=== PATIENT | male | born 1965 | race American Indian/Alaskan Native ===

== ENCOUNTER 2017-04-24 18:02 | Emergency (ER) | payer MEDICARE ==
--- NOTE | 2017-04-24 23:12 | Emergency Department Report ---
HPI - General Chief Complaint: Pain General Time Seen by Provider: 04/24/17 22:48 - HPI HPI: Room 24 The patient is a 52-year-old male presenting with a chief complaint of left testicle/groin pain. The patient is deaf so history is obtained through written messages. The patient states for 3 weeks he's had intermittent pain in the left testicle and left groin. The patient denies dysuria or penile discharge. Patient denies fever. Location: Left testicle, left groin Duration: Intermittent 3 weeks Quality: Pain Severity: Moderate Modifying factors: [see above] Context: [see above] Mode of transportation: [not driving] ED Past Medical Hx - Past Medical History Additional medical history: Hearing impairment - Surgical History Additional Surgical History: right Knee Surgery 2010 - Family History Family history: no significant - Social History Smoking Status: Current Every Day Smoker Substance Use Type: None - Medications Home Medications: Home Medications Medication Instructions Recorded Confirmed Last Taken Type Ibuprofen [Motrin] 800 mg PO TID PRN #21 tablet 07/19/13 Unknown Rx Neomy/Polymyx B/Hc (Otic) Soln 5 drops OT QID #1 bottle 07/19/13 Unknown Rx [Cortisporin (Otic) Soln] Sulfamethoxazole/Trimethoprim 1 each PO BID #20 tablet 07/19/13 Unknown Rx [Bactrim Ds] Ibuprofen [Motrin 800 MG tab] 800 mg PO Q8HR PRN #20 tablet 04/25/17 Unknown Rx traMADol [Ultram] 50 mg PO Q6HR PRN #14 tablet 04/25/17 Unknown Rx ED Review of Systems ROS: Stated complaint: TESTICLE PAIN Other details as noted in HPI Constitutional: denies: fever Genitourinary: testicular pain. denies: dysuria, discharge Musculoskeletal: myalgia Physical Exam - Physical Exam Vital Signs: Vital Signs 04/24/17 18:18 Temperature 98.2 F Pulse Rate 75 Respiratory 16 Rate Blood Pressure 124/84 O2 Sat by Pulse 97 Oximetry Physical Exam: GENERAL: The patient is well-developed well-nourished male lying on stretcher not appearing to be in acute distress. [] HEENT: Normocephalic. Atraumatic. Extraocular motions are intact. Patient has moist mucous membranes. NECK: Supple. Trachea midline CHEST/LUNGS: There is no respiratory distress noted. HEART/CARDIOVASCULAR: Regular. There is no tachycardia. There is no gallop rub or murmur. ABDOMEN: There is no abdominal distention. SKIN: There is no rash. There is no edema. There is no diaphoresis. NEURO: The patient is awake, alert, and oriented. The patient is cooperative. MUSCULOSKELETAL:There is no evidence of acute injury. GENITOURINARY: No evidence of scrotal edema or inguinal hernia palpated. Testicles have normal appearance ED Course Vital Signs 04/24/17 18:18 Temperature 98.2 F Pulse Rate 75 Respiratory 16 Rate Blood Pressure 124/84 O2 Sat by Pulse 97 Oximetry ED Medical Decision Making - Lab Data Result diagrams: 04/24/17 23:41 04/24/17 23:41 Laboratory Tests 04/24/17 04/24/17 04/24/17 23:41 23:41 Unknown WBC 5.7 RBC 4.70 Hgb 14.2 Hct 42.8 MCV 91 MCH 30 MCHC 33 RDW 13.7 Plt Count 290 Sodium 141 Potassium 4.0 Chloride 101.5 Carbon Dioxide 28 Anion Gap 16 BUN 13 Creatinine 0.8 Estimated GFR > 60 BUN/Creatinine Ratio 16 Glucose 94 Calcium 9.3 Urine Color Yellow Urine Turbidity Clear Urine pH 5.0 Ur Specific [place] 1.024 Urine Protein <15 mg/dl Urine Glucose (UA) Neg Urine Ketones Neg Urine Blood Neg Urine Nitrite Neg Urine Bilirubin Neg Urine Urobilinogen 2.0 Ur Leukocyte Esterase Neg Urine WBC (Auto) < 1.0 Urine RBC (Auto) 1.0 - Radiology Data Radiology results: report reviewed (CT abdomen and pelvis, testicular ultrasound ), image reviewed (CT abdomen and pelvis, testicular ultrasound) FINAL REPORT PROCEDURE: CT ABDOMEN PELVIS WO CON TECHNIQUE: Computerized axial tomography of the abdomen and pelvis was performed without intravenous contrast. This study is performed without intravascular contrast material and its sensitivity for abdominal and pelvic pathology, including neoplasms, inflammation, abscess, free fluid, thrombosis, arterial dissection and infarction, is reduced compared with a contrast enhanced study. HISTORY: left groin pain, left flank pain COMPARISON: No prior studies are available for comparison. FINDINGS: Cardiomegaly is seen without suggestion of CHF. Liver is top normal limits in size. No splenic abnormality is seen. Gallbladder is contracted and not well evaluated. Appears normal. Adrenal glands and abdominal aorta are normal in size. No renal abnormality is seen. Patient has a very long appendix, which extends cephalad terminating between the duodenum and the gallbladder fossa. This is a normal variant appearance and no evidence of appendicitis is seen. Urinary bladder is decompressed but there is suggestion of possible diffuse wall thickening. Cystitis cannot be excluded. Prostate gland appears normal in size. There is a low-density cystic-appearing structure in the left side of the pelvis measuring 2.2 x 1.9 cm. It could be a GI duplication cyst or possibly a Hutch diverticulum. Undescended testis would be another possible etiology. Mild right-sided constipation is seen. No evidence of bowel obstruction is seen. Diffuse central disc bulge is seen at L4-5 causing thecal sac effacement. IMPRESSION: Possible changes of cystitis are seen. Correlation with urinalysis is recommended. 2.2 cm thin-walled simple appearing cyst is seen in the left side of the pelvis. This could be a serous cyst or duplication cyst. A Hutch diverticulum or undescended testis could possibly cause the appearance. Mild right-sided constipation is seen. Cardiomegaly is seen without evidence of CHF. Transcribed By: ANTONY Dictated By: ROBSON OLIVEIRA JR, MD Electronically Authenticated By: ROBSON OLIVEIRA JR, MD Signed Date/Time: 04/24/171946 DD/ 46 TD/TT: 04/24/171946 FINAL REPORT EXAM: US TESTICULAR DOPPLER COMP HISTORY: left testicular pain TECHNIQUE: Routine sonographic evaluation was obtained of the scrotum along with Doppler interrogation of the testicles. FINDINGS: The right testicle is normal in size contour blood flow and echotexture measuring 5.1 cm x 2.0 cm x 2.9 cm. The right epididymis appears normal. The left testicle measures 4.5 cm x 1.8 cm x 2.9 cm. Within the left testicle is a benign cyst measuring 6 millimeters in diameter. The blood flow is normal to the left testicle. The left epididymis appears normal. There is a small left-sided hydrocele. IMPRESSION: Small left hydrocele. 6 millimeter benign cyst within the left testicle. No evidence of an undescended testicle. No evidence of testicular torsion. Transcribed By: AARON Dictated By: CHLOE BLAIR MD Electronically Authenticated By: CHLOE BLAIR MD Signed Date/Time: 04/24/172003 DD/ 03 TD/TT: 04/24/172003 - Differential Diagnosis renal colic, hernia, testicular torsion, epididymitis Critical care attestation.: If time is entered above; I have spent that time in minutes in the direct care of this critically ill patient, excluding procedure time. ED Disposition Clinical Impression: Hydrocele in adult, Testicular cyst, Testicle pain Disposition: TO HOME OR SELFCARE Is pt being admited?: No Does the pt Need Aspirin: No Condition: Stable Instructions: Testicle Pain (ED), Hydrocele (ED) Additional Instructions: Return to the emergency department immediately should you develop worsening symptoms, fever, inability to tolerate food or liquid or any other concerns. Prescriptions: Ibuprofen [Motrin 800 MG tab] 800 mg PO Q8HR PRN #20 tablet PRN Reason: Pain traMADol [Ultram] 50 mg PO Q6HR PRN #14 tablet PRN Reason: Pain Referrals: TANYA SOLOMON MD [Staff Physician] - 2-3 Days (Dr. Solomon is a urologist. Please follow-up with him for further evaluation of your testicular cyst and hydrocele) Time of Disposition: 00:22
--- NOTE | 2017-04-24 23:50 | Cat Scan Report ---
FINAL REPORT PROCEDURE: CT ABDOMEN PELVIS WO CON TECHNIQUE: Computerized axial tomography of the abdomen and pelvis was performed without intravenous contrast. This study is performed without intravascular contrast material and its sensitivity for abdominal and pelvic pathology, including neoplasms, inflammation, abscess, free fluid, thrombosis, arterial dissection and infarction, is reduced compared with a contrast enhanced study. HISTORY: left groin pain, left flank pain COMPARISON: No prior studies are available for comparison. FINDINGS: Cardiomegaly is seen without suggestion of CHF. Liver is top normal limits in size. No splenic abnormality is seen. Gallbladder is contracted and not well evaluated. Appears normal. Adrenal glands and abdominal aorta are normal in size. No renal abnormality is seen. Patient has a very long appendix, which extends cephalad terminating between the duodenum and the gallbladder fossa. This is a normal variant appearance and no evidence of appendicitis is seen. Urinary bladder is decompressed but there is suggestion of possible diffuse wall thickening. Cystitis cannot be excluded. Prostate gland appears normal in size. There is a low-density cystic-appearing structure in the left side of the pelvis measuring 2.2 x 1.9 cm. It could be a GI duplication cyst or possibly a Hutch diverticulum. Undescended testis would be another possible etiology. Mild right-sided constipation is seen. No evidence of bowel obstruction is seen. Diffuse central disc bulge is seen at L4-5 causing thecal sac effacement. IMPRESSION: Possible changes of cystitis are seen. Correlation with urinalysis is recommended. 2.2 cm thin-walled simple appearing cyst is seen in the left side of the pelvis. This could be a serous cyst or duplication cyst. A Hutch diverticulum or undescended testis could possibly cause the appearance. Mild right-sided constipation is seen. Cardiomegaly is seen without evidence of CHF.
[2017-04-24 23:51] LABS: Bilirubin,Urine NEG (Negative); Blood,Urine NEG (Negative); Ketones,Urine NEG (Negative); Leukocyte Esterase,Urine NEG (Negative); Nitrite,Urine NEG (Negative); Protein,Urine <15 mg/dL mg/dL (Negative)
[2017-04-24 23:53] LABS: WBC,Urine < 1.0 /HPF (0.0-6.0)
[2017-04-24 23:58] LABS: Hematocrit 42.8 % (35.5-45.6); Hemoglobin 14.2 gm/dl (11.8-15.2); Mean Corpuscular HGB Conc 33 % (32-34); Mean Corpuscular Hemoglobin 30 pg (28-32); Mean Corpuscular Volume 91 fl (84-94); Platelet Count 290 K/mm3 (140-440); Red Cell Distribution Width 13.7 % (13.2-15.2); White Blood Count 5.7 K/mm3 (4.5-11.0)
--- NOTE | 2017-04-25 00:07 | Ultrasound Report ---
FINAL REPORT EXAM: US TESTICULAR DOPPLER COMP HISTORY: left testicular pain TECHNIQUE: Routine sonographic evaluation was obtained of the scrotum along with Doppler interrogation of the testicles. FINDINGS: The right testicle is normal in size contour blood flow and echotexture measuring 5.1 cm x 2.0 cm x 2.9 cm. The right epididymis appears normal. The left testicle measures 4.5 cm x 1.8 cm x 2.9 cm. Within the left testicle is a benign cyst measuring 6 millimeters in diameter. The blood flow is normal to the left testicle. The left epididymis appears normal. There is a small left-sided hydrocele. IMPRESSION: Small left hydrocele. 6 millimeter benign cyst within the left testicle. No evidence of an undescended testicle. No evidence of testicular torsion.
[2017-04-25 00:16] LABS: Anion Gap 16 mmol/L; BUN/Creatinine Ratio 16; Blood Urea Nitrogen 13 mg/dL (9-20); Calcium 9.3 mg/dL (8.4-10.2); Carbon Dioxide 28 mmol/L (22-30); Chloride 101.5 mmol/L (98-107); Glucose 94 mg/dL (75-100); Sodium 141 mmol/L (137-145)
[2017-04-25 01:07] VITALS: BP 120/80
[2017-04-25 01:45] LABS: Basophils % (Manual) 0 % (0.0-1.8); Blastocytes % (Manual) 0 %
[2017-04-25 01:46] LABS: Anisocytosis Few; Diff Status Complete
== END 2017-04-25 01:07 | disposition home or self-care (01) ==
LOC: ED 18:02
DX: N43.3 Hydrocele, unspecified (principal); N44.2 Benign cyst of testis; N50.812 Left testicular pain; F17.200 Nicotine dependence, unspecified, uncomplicated
CPT/HCPCS: 36415; 74176; 80048; 81001; 85007; 85025; 93975; 99284

== ENCOUNTER 2017-11-20 17:21 | Emergency (ER) | payer MEDICARE ==
[2017-11-20 20:27] LABS: Basophils % (Auto) 0.7 % (0.0-1.8); Eosinophils # (Auto) 0.1 K/mm3 (0.0-0.4); Eosinophils % (Auto) 1.9 % (0.0-4.3); Hemoglobin 14.3 gm/dl (11.8-15.2); Lymphocytes # (Auto) 2.7 K/mm3 (1.2-5.4); Lymphocytes % (Auto) 47.9 % (13.4-35.0); Mean Corpuscular HGB Conc 33 % (32-34); Mean Corpuscular Hemoglobin 30 pg (28-32); Mean Corpuscular Volume 92 fl (84-94); Monocytes # (Auto) 0.6 K/mm3 (0.0-0.8); Monocytes % (Auto) 10.1 % (0.0-7.3); Platelet Count 276 K/mm3 (140-440); Red Blood Count 4.77 M/mm3 (3.65-5.03); Red Cell Distribution Width 14.7 % (13.2-15.2)
--- NOTE | 2017-11-20 21:24 | Emergency Department Report ---
ED General Adult HPI - General Chief complaint: Medical Clearance Stated complaint: RASH Time Seen by Provider: 11/20/17 20:36 Source: patient Mode of arrival: Ambulatory Limitations: Physical Limitation - History of Present Illness Initial comments: 52-year-old male multiple complaints he is deaf and only history is obtainable to note writing he states that he has chronic right knee pain ever since she had surgery on her 5 years ago thinks he reinjured it and twisted it playing basketball, also thinks he twisted and reinjured his left hip with chronic pain he has a full range of motion of both lower extremities without numbness or weakness or redness or warmth, he says is occasionally getting intermittent palpitations. Denies any syncope or chest pain, he also wants his feet looked at for a foot rash and he thinks he has a rash from shaving -: Gradual, days(s) Location: head, chest, left, right, lower extremity Radiation: non-radiation Quality: burning, stabbing Consistency: intermittent Improves with: none Worsens with: none Associated Symptoms: denies other symptoms. denies: confusion, chest pain, cough, diaphoresis, fever/chills, headaches, loss of appetite, malaise, nausea/ vomiting, rash, seizure, shortness of breath, syncope, weakness - Related Data Previous Rx's Medication Instructions Recorded Last Taken Type Ibuprofen [Motrin] 800 mg PO TID PRN #21 tablet 07/19/13 Unknown Rx Neomy/Polymyx B/Hc (Otic) Soln 5 drops OT QID #1 bottle 07/19/13 Unknown Rx [Cortisporin (Otic) Soln] Sulfamethoxazole/Trimethoprim 1 each PO BID #20 tablet 07/19/13 Unknown Rx [Bactrim Ds] Ibuprofen [Motrin 800 MG tab] 800 mg PO Q8HR PRN #20 tablet 04/25/17 Unknown Rx traMADol [Ultram] 50 mg PO Q6HR PRN #14 tablet 04/25/17 Unknown Rx Clotrimazole [Antifungal] 15 gm TP BID #1 cream..g. 11/20/17 Unknown Rx Ibuprofen [Motrin] 600 mg PO Q8H PRN #15 tablet 11/20/17 Unknown Rx Mupirocin [Bactroban 2%] 1 applic TP TID 21 Days #1 tube 11/20/17 Unknown Rx Allergies Allergy/AdvReac Type Severity Reaction Status Date / Time No Known Allergies Allergy Unverified 07/19/13 09:19 ED Review of Systems ROS: Stated complaint: RASH Other details as noted in HPI Comment: All other systems reviewed and negative Constitutional: denies: diaphoresis, fever, malaise Eyes: denies: eye discharge, vision change ENT: denies: dental pain, hearing loss, epistaxis Respiratory: denies: shortness of breath, SOB with exertion, SOB at rest, stridor Cardiovascular: palpitations. denies: chest pain, dyspnea on exertion, orthopnea, edema, syncope Gastrointestinal: denies: abdominal pain, nausea, vomiting, diarrhea, constipation, hematemesis, melena, hematochezia Musculoskeletal: arthralgia, myalgia Neurological: denies: headache, weakness, numbness, paresthesias, confusion, abnormal gait, vertigo ED Past Medical Hx - Past Medical History Previous Medical History?: No Additional medical history: Hearing impairment - Surgical History Additional Surgical History: right Knee Surgery 2010 - Social History Smoking Status: Current Every Day Smoker Substance Use Type: None - Medications Home Medications: Home Medications Medication Instructions Recorded Confirmed Last Taken Type Ibuprofen [Motrin] 800 mg PO TID PRN #21 tablet 07/19/13 Unknown Rx Neomy/Polymyx B/Hc (Otic) Soln 5 drops OT QID #1 bottle 07/19/13 Unknown Rx [Cortisporin (Otic) Soln] Sulfamethoxazole/Trimethoprim 1 each PO BID #20 tablet 07/19/13 Unknown Rx [Bactrim Ds] Ibuprofen [Motrin 800 MG tab] 800 mg PO Q8HR PRN #20 tablet 04/25/17 Unknown Rx traMADol [Ultram] 50 mg PO Q6HR PRN #14 tablet 04/25/17 Unknown Rx Clotrimazole [Antifungal] 15 gm TP BID #1 cream..g. 11/20/17 Unknown Rx Ibuprofen [Motrin] 600 mg PO Q8H PRN #15 tablet 11/20/17 Unknown Rx Mupirocin [Bactroban 2%] 1 applic TP TID 21 Days #1 tube 11/20/17 Unknown Rx ED Physical Exam - General Limitations: Physical Limitation General appearance: alert, in no apparent distress, anxious - Head Head exam: Present: atraumatic, normocephalic - Eye Eye exam: Present: PERRL, EOMI - ENT ENT exam: Present: normal exam, normal orophraynx - Neck Neck exam: Present: normal inspection. Absent: tenderness, meningismus - Respiratory Respiratory exam: Present: normal lung sounds bilaterally. Absent: respiratory distress, wheezes, rales, rhonchi, stridor, chest wall tenderness, accessory muscle use, decreased breath sounds, prolonged expiratory - Cardiovascular Cardiovascular Exam: Present: regular rate, normal rhythm, other (pulses equal bilaterally) - GI/Abdominal GI/Abdominal exam: Present: soft. Absent: distended, tenderness, guarding, rebound, rigid, mass, pulsatile mass - Extremities Exam Extremities exam: Present: normal inspection, normal capillary refill, other ( no gross instability to the knee or the hip was appreciated he did have some mild point tenderness to the knee to the medial aspect as well as to the hip to the lateral aspect consistent with strain) - Back Exam Back exam: Present: normal inspection. Absent: CVA tenderness (L), muscle spasm , paraspinal tenderness, vertebral tenderness - Neurological Exam Neurological exam: Present: alert, oriented X3, CN II-XII intact. Absent: motor sensory deficit - Skin Skin exam: Present: warm, normal color. Absent: cyanosis, diaphoretic, erythema , urticaria, vesicles, petechiae, pallor, abrasion, ecchymosis ED Course Vital Signs 11/20/17 11/20/17 18:51 22:55 Temperature 98.2 F 98.4 F Pulse Rate 74 67 Respiratory 16 16 Rate Blood Pressure 110/77 Blood Pressure 142/97 [Left] O2 Sat by Pulse 98 100 Oximetry ED Medical Decision Making - Lab Data Result diagrams: 11/20/17 20:06 11/20/17 20:06 - EKG Data -: EKG Interpreted by Me - Radiology Data Radiology results: report reviewed - Medical Decision Making Tinea pedis to the feet no cellulitis EKG sinus rhythm rate of 63 first-degree AV block normal sinus rhythm with ST change that would suggest ACS at this time face does appear to have some shaving pustules consistent with tinea barbae, troponin is negative laboratory studies her negative x-ray study shows only degenerative changes she is stable for outpatient follow-up Critical care attestation.: If time is entered above; I have spent that time in minutes in the direct care of this critically ill patient, excluding procedure time. ED Disposition Clinical Impression: Tinea barbae, Tinea pedis, Heart palpitations, Knee pain, Hip pain Disposition: TO HOME OR SELFCARE Is pt being admited?: No Condition: Stable Instructions: Knee Pain (ED), Arthralgia (ED), Palpitations (ED), Folliculitis (ED), Tinea Pedis (ED) Additional Instructions: See the doctor listed her regular doctor return immediately if new alarming symptoms or call 911 Prescriptions: Clotrimazole [Antifungal] 15 gm TP BID #1 cream..g. Ibuprofen [Motrin] 600 mg PO Q8H PRN #15 tablet PRN Reason: Pain Mupirocin [Bactroban 2%] 1 applic TP TID 21 Days #1 tube Referrals: LAUREN BUTCHER MD [Primary Care Provider] - 3-5 Days
--- NOTE | 2017-11-20 21:26 | XRay Report ---
FINAL REPORT EXAM: XR KNEE 3V RT HISTORY: rt knee pain TECHNIQUE: 3 views of right knee. PRIORS: None. FINDINGS: Mild degenerative changes in all 3 joint compartments. No apparent fracture or dislocation. Soft tissues grossly unremarkable. IMPRESSION: 1. No acute osseous abnormality. 2. Degenerative changes.
--- NOTE | 2017-11-20 21:29 | XRay Report ---
FINAL REPORT EXAM: XR CHEST ROUTINE 2V HISTORY: Shortness of breath TECHNIQUE: Frontal and lateral chest x-ray. PRIORS: None. FINDINGS: Cardiac and mediastinal silhouette within normal limits. Lungs show mild and partially confluent opacities in the retrocardiac region of left lower lung. No other focal consolidation, pleural effusions or apparent pneumothorax. Bony thorax grossly unremarkable. IMPRESSION: 1. Findings which may represent left basilar atelectasis, mild infiltrate or postinflammatory change and scarring of uncertain etiology or chronicity. Clinical correlation and radiographic followup after 4-6 weeks advised to document resolution.
--- NOTE | 2017-11-20 21:29 | XRay Report ---
FINAL REPORT EXAM: XR HIP 2-3V LT HISTORY: left hip pain TECHNIQUE: AP view of pelvis and frogleg lateral view of left hip. PRIORS: None. FINDINGS: No apparent fracture or dislocation. Joint spaces maintained. Soft tissues grossly unremarkable. IMPRESSION: 1. No acute osseous abnormality.
[2017-11-20 22:36] LABS: Alanine Aminotransferase 35 units/L (7-56); Albumin 4.5 g/dL (3.9-5); BUN/Creatinine Ratio 18; Blood Urea Nitrogen 14 mg/dL (9-20); Calcium 9.2 mg/dL (8.4-10.2); Hemolysis Index 5
[2017-11-20 22:56] VITALS: BP 142/97
== END 2017-11-20 23:00 | disposition home or self-care (01) ==
LOC: ED 17:21
DX: B35.0 Tinea barbae and tinea capitis (principal); M25.561 Pain in right knee; B35.3 Tinea pedis; M25.551 Pain in right hip; R00.2 Palpitations; F17.200 Nicotine dependence, unspecified, uncomplicated
CPT/HCPCS: 36415; 71046; 80053; 84484; 85025; 93005; 93010

== ENCOUNTER 2019-03-10 14:04 | Emergency (ER) | payer MEDICARE ==
[2019-03-10 14:53] VITALS: BP 122/76
--- NOTE | 2019-03-10 15:07 | Emergency Department Report ---
ED General Adult HPI - General Chief complaint: Upper Respiratory Infection Stated complaint: POSS SINUS INFECTION/NECK/R KNEE PAIN Time Seen by Provider: 03/10/19 14:41 Source: patient Mode of arrival: Ambulatory Limitations: No Limitations - History of Present Illness Initial comments: 54 y/o male deaf male comes in for c/o sinus issues. Patient reports frontal headache , nasal congestion times 2 weeks. Patient as so complain of right side rib pain. Patient denies any injury but does admit to working out. Patient has taken nothing for pain. Patient denies - Related Data Previous Rx's Medication Instructions Recorded Last Taken Type Ibuprofen [Motrin] 800 mg PO TID PRN #21 tablet 07/19/13 Unknown Rx Neomy/Polymyx B/Hc (Otic) Soln 5 drops OT QID #1 bottle 07/19/13 Unknown Rx [Cortisporin (Otic) Soln] traMADol [Ultram] 50 mg PO Q6HR PRN #14 tablet 04/25/17 Unknown Rx Clotrimazole [Antifungal] 15 gm TP BID #1 cream..g. 11/20/17 Unknown Rx Ibuprofen [Motrin] 600 mg PO Q8H PRN #15 tablet 11/20/17 Unknown Rx Mupirocin [Bactroban 2%] 1 applic TP TID 21 Days #1 tube 11/20/17 Unknown Rx Cetirizine HCl [Zyrtec 10mg tab] 10 mg PO QDAY #28 tablet 03/10/19 Unknown Rx Fluticasone Furoate [Flonase 9.1 ml NS QDAY #1 spray.susp 03/10/19 Unknown Rx Sensimist] Ibuprofen [Motrin 800 MG tab] 800 mg PO Q8HR PRN #20 tablet 03/10/19 Unknown Rx Sulfamethoxazole/Trimethoprim 1 each PO BID #20 tablet 03/10/19 Unknown Rx [Bactrim DS TAB] Allergies Allergy/AdvReac Type Severity Reaction Status Date / Time No Known Allergies Allergy Unverified 07/19/13 09:19 ED Review of Systems ROS: Stated complaint: POSS SINUS INFECTION/NECK/R KNEE PAIN Other details as noted in HPI ED Past Medical Hx - Past Medical History Previous Medical History?: Yes Additional medical history: Hearing impairment - Surgical History Past Surgical History?: Yes Additional Surgical History: right Knee Surgery 2010 - Social History Smoking Status: Current Some Day Smoker Substance Use Type: None - Medications Home Medications: Home Medications Medication Instructions Recorded Confirmed Last Taken Type Ibuprofen [Motrin] 800 mg PO TID PRN #21 tablet 07/19/13 Unknown Rx Neomy/Polymyx B/Hc (Otic) Soln 5 drops OT QID #1 bottle 07/19/13 Unknown Rx [Cortisporin (Otic) Soln] traMADol [Ultram] 50 mg PO Q6HR PRN #14 tablet 04/25/17 Unknown Rx Clotrimazole [Antifungal] 15 gm TP BID #1 cream..g. 11/20/17 Unknown Rx Ibuprofen [Motrin] 600 mg PO Q8H PRN #15 tablet 11/20/17 Unknown Rx Mupirocin [Bactroban 2%] 1 applic TP TID 21 Days #1 tube 11/20/17 Unknown Rx Cetirizine HCl [Zyrtec 10mg tab] 10 mg PO QDAY #28 tablet 03/10/19 Unknown Rx Fluticasone Furoate [Flonase 9.1 ml NS QDAY #1 spray.susp 03/10/19 Unknown Rx Sensimist] Ibuprofen [Motrin 800 MG tab] 800 mg PO Q8HR PRN #20 tablet 03/10/19 Unknown Rx Sulfamethoxazole/Trimethoprim 1 each PO BID #20 tablet 03/10/19 Unknown Rx [Bactrim DS TAB] ED Physical Exam - General Limitations: No Limitations General appearance: alert, in no apparent distress - Head Head exam: Present: atraumatic, normocephalic - Eye Eye exam: Present: normal appearance, PERRL, EOMI - ENT ENT exam: Present: mucous membranes moist - Neck Neck exam: Present: full ROM. Absent: tenderness - Respiratory Respiratory exam: Present: chest wall tenderness ( right rib tenderness) - Neurological Exam Neurological exam: Present: alert, oriented X3, normal gait - Psychiatric Psychiatric exam: Present: normal affect, normal mood - Skin Skin exam: Present: warm, dry, intact, normal color. Absent: rash ED Course Vital Signs 03/10/19 14:36 Temperature 97.8 F Pulse Rate 83 Respiratory 16 Rate Blood Pressure 122/76 O2 Sat by Pulse 98 Oximetry ED Medical Decision Making - Medical Decision Making 54 y/o male deaf male comes in for c/o sinus issues. Patient reports frontal headache , nasal congestion times 2 weeks. Patient as so complain of right side rib pain. Patient denies any injury but does admit to working out. Patient has taken nothing for pain. Patient denies any fever, sob. 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 Critical care attestation.: If time is entered above; I have spent that time in minutes in the direct care of this critically ill patient, excluding procedure time. ED Disposition Clinical Impression: Sinusitis Qualifiers: Sinusitis location: frontal Chronicity: acute Recurrence: recurrent Qualified Code(s): J01.11 - Acute recurrent frontal sinusitis Disposition: TO HOME OR SELFCARE Is pt being admited?: No Does the pt Need Aspirin: No Condition: Stable Instructions: Sinusitis (ED) Prescriptions: Sulfamethoxazole/Trimethoprim [Bactrim DS TAB] 1 each PO BID #20 tablet Fluticasone Furoate [Flonase Sensimist] 9.1 ml NS QDAY #1 spray.susp Ibuprofen [Motrin 800 MG tab] 800 mg PO Q8HR PRN #20 tablet PRN Reason: Pain Cetirizine HCl [Zyrtec 10mg tab] 10 mg PO QDAY #28 tablet Referrals: your,pcp [Other] - 3-5 Days
== END 2019-03-10 15:23 | disposition home or self-care (01) ==
LOC: ED 14:04
DX: J32.9 Chronic sinusitis, unspecified (principal); F17.200 Nicotine dependence, unspecified, uncomplicated
CPT/HCPCS: 99282